=== PATIENT | female | born 1995 | race Caucasian/White ===

== ENCOUNTER 2018-10-08 20:34 | Emergency (ER) | payer OTHER ==
[2018-10-08] MEDS ORDERED: Morphine 4 MG/ML VIAL ONE (20:48)
[2018-10-08] MEDS ORDERED: Ondansetron PF 4 MG/2 ML Vial ONE (20:48)
[2018-10-08] MEDS ORDERED: Ketorolac Tromethamine 30 MG/ML VIAL ONE (21:31)
[2018-10-08] MEDS ORDERED: Fentanyl 100 MCG/2 ML VIAL ONE (21:31)
[2018-10-08] MEDS ORDERED: Bacitracin Zinc 1 Packet ONE (21:31)
== END 2018-10-08 21:47 | disposition home or self-care (01) ==
LOC: ERS 20:34
DX: T23.201A Burn of second degree of right hand, unspecified site, initial encounter (principal); F41.9 Anxiety disorder, unspecified; Z79.899 Other long term (current) drug therapy; X19.XXXA Contact with other heat and hot substances, initial encounter
CPT/HCPCS: 16020; 94760; 96361; 96374; 96375; J1885; J2270; J2405; J3010

== ENCOUNTER 2020-08-12 18:34 | Emergency (ER) | payer OTHER ==
[~2020-08-12 18:34] MED LIST: Iopamidol 370 76% 100 ML VIAL ONE
[2020-08-12 19:23] LABS: #Lymphocytes 1.3 thou/uL (1.20-3.40); #Monocytes 0.2 thou/uL (0.11-0.59); #Neutrophils 1.5 thou/uL (1.40-6.50); %Basophils 1.3 % (0.0-1.0); %Eosinophils 0.5 % (0.0-10.0); %Lymphocytes 42.1 % (21.0-51.0); %Monocytes 6.8 % (0.0-10.0); %Neutrophils 49.3 % (42.0-75.0); Hemoglobin 16.7 g/dL (12.0-16.0); Mean Corpuscular HGB CONC 36.4 g/dL (32.0-36.0); Mean Corpuscular Hemoglobin 32.1 pg (27.0-31.0); Mean Corpuscular Volume 88.4 fL (78.0-98.0); Mean Platelet Volume 9.3 fL (7.4-10.4); Platelet Count 123 thou/uL (130-400); RBC Distribution Width 11.8 % (11.5-14.5)
[2020-08-12] MEDS ORDERED: Albuterol 200 PUFF (6.7GM INHALER) ONE (19:30)
[2020-08-12 19:51] LABS: ALT (SGPT) 66 U/L (8-55); AST (SGOT) 46 U/L (5-34); Alkaline Phosphatase 127 U/L (40-110); Anion Gap 15 mmol/L (10-20); BUN (Urea Nitrogen) 14 mg/dL (7.0-18.7); Bilirubin, Total 0.5 mg/dL (0.2-1.2); Calc. Creatinine Clearance 0 mL/min (70-130); Calcium 8.9 mg/dL (7.8-10.44); Carbon Dioxide 24 mmol/L (22-29); Chloride 107 mmol/L (98-107); Estimated GFR-MDRD 87; Globulin 3.7 g/dL (2.4-3.5); Glucose 122 mg/dL (70-105); Potassium 3.5 mmol/L (3.5-5.1); Protein, Total 7.7 g/dL (6.0-8.3); Sodium 142 mmol/L (136-145)
[2020-08-12 20:15] LABS: BHCG - Serum Negative (NEGATIVE); Pregs Control Background? CLEAR/WHITE (CLR/WHITE); Pregs Control Bar Appear? YES (CONTROL BAR)
--- NOTE | 2020-08-12 20:18 | RAD ---
Portable frontal chest radiograph: 08/12/2020 COMPARISON: None HISTORY: Covid positive patient FINDINGS: There is no pneumothorax or pleural fluid and no focal consolidation or alveolar edema. Haz y increased linear density in the medial left base noted, likely on the basis of volume loss or mild infiltrate. There is no lobar consolidation or alveolar edema. IMPRESSION: Mild hazy increased density in the medial left base. No lobar consolidation or alveolar e juan. Follow-up imaging may be beneficial to further evaluate the medial left base.
--- NOTE | 2020-08-12 21:00 | CT ---
CT angiogram chest: 08/12/2020 COMPARISON: None HISTORY: Covid positive patient, shortness of breath, elevated d-dimer TECHNIQUE: Axial CT imaging at 2.5 mm intervals through the chest with IV contrast using CT angiogram protocol. Coronal and oblique sagittal 3-D reformatted imaging obtained. FINDINGS: Secondary to timing of the contrast bolus, assessment of the pulmonary arterial vasculature is suboptimal. No obvious central pulmonary arterial embolism. This study is nondiagnostic with respect to assessment for pulmonary arterial embolism at the lobar level and beyond. The imaged upper abdomen appears unremarkable. No significant pleural, pericardial, or mediastinal fl uid. No lymphadenopathy is seen within the chest. Patchy increased density is seen peripherally within bilateral lower lobes posteriorly/inferiorly, lewis ggesting volume loss or mild infiltrate. In addition, there are subtle scattered areas of groundglass opacity within the medial and posterior aspect of the right upper lobe, the central aspec t of the right upper lobe, the central and superior aspect of the right middle lobe the anterior inferior aspect of the right upper lobe, and scattered throughout portions of the left upper lobe. Th akira findings are consistent with atypical infectious pneumonitis. Review of the osseous structures demonstrates no worrisome lytic or blastic lesions. IMPRESSION: Suboptimal assessment for pulmonary embolism secondary to timing of the contrast bolus. P ulmonary embolism cannot be excluded on this exam. Multiple foci of groundglass opacity within both lungs reflecting atypical infectious pneumonitis, co nsistent with the patient's history of Covid positive status.
[2020-08-12] MEDS ORDERED: Acetaminophen 500 MG TAB ONE (22:23)
== END 2020-08-13 00:18 | disposition home or self-care (01) ==
LOC: ERS 18:34
DX: U07.1 COVID-19 (principal); F41.9 Anxiety disorder, unspecified; F32.9 Major depressive disorder, single episode, unspecified; Z79.899 Other long term (current) drug therapy
CPT/HCPCS: 71045; 71275; 80053; 84703; 85025; 85379; 93005; 94664; Q9967